=== PATIENT | male | born 1965 | race Caucasian/White ===

== ENCOUNTER 2016-09-28 10:37 | Emergency (ER) | payer OTHER ==
[2016-09-28 12:10] LABS: BASO % 0.3 % (0.2-1.2); EOS # 0.1 10_X3_uL (0.0-0.5); EOS % 1.6 % (0.8-7.0); GRAN # 3.8 10_X3_uL (1.8-5.4); GRAN % 55.4 % (34.0-67.9); HEMATOCRIT 47.3 % (40-51); HEMOGLOBIN 16.5 g/dL (13.7-17.5); LYMPH # 2.3 10_X3_uL (1.3-3.6); MEAN CORPUSCULAR HEMOGLOBIN 30.2 pg (27.0-33.0); MEAN CORPUSCULAR HGB CONC 34.9 g/dL (32.0-36.0); MEAN CORPUSCULAR VOLUME 86.5 fL (79-92); MEAN PLATELET VOLUME 10.5 fl (7.5-11.5); MONO # 0.7 10_X3_uL (0.3-0.8); MONO % 9.7 % (5.3-12.2); PLATELET COUNT 225 x10_3/uL (163-337); RED BLOOD COUNT 5.47 x10_6/uL (4.6-6.1); RED CELL DISTRIBUTION WIDTH 14.4 % (11.6-14.4); WHITE BLOOD COUNT 6.9 x10_3/uL (4.2-9.1)
[2016-09-28 12:20] LABS: URINE BILIRUBIN NEGATIVE (NEGATIVE); URINE BLOOD NEGATIVE (NEGATIVE); URINE GLUCOSE (UA) NORMAL (NORMAL); URINE KETONE NEGATIVE (NEGATIVE); URINE LEUKOCYTE ESTERASE TRACE (NEGATIVE); URINE NITRATE NEGATIVE (NEGATIVE); URINE PROTEIN NEGATIVE (NEGATIVE)
[2016-09-28 12:21] LABS: BLOOD UREA NITROGEN 15 mg/dL (7-18); CARBON DIOXIDE 23 mmol/L (21-32); CREATININE 0.9 mg/dL (0.6-1.3); GLUCOSE,RANDOM 100 mg/dL (70-99); POTASSIUM 4.3 mmol/L (3.5-5.1); SODIUM 137 mmol/L (136-145)
[2016-09-28 12:51] LABS: URINE RBC 0-5 /[HPF] (0-2); URINE WBC 0-5 /[HPF] (0-3)
== END 2016-09-28 15:30 | disposition home or self-care (01) ==
LOC: ER 10:37
PROVIDERS: Emergency Medicine
DX: M99.43 Connective tissue stenosis of neural canal of lumbar region (principal); M54.5 Low back pain; X50.0XXA Overexertion from strenuous movement or load, initial encounter; Y92.019 Unspecified place in single-family (private) house as the place of occurrence of the external cause; I25.2 Old myocardial infarction; Z87.442 Personal history of urinary calculi; Z95.5 Presence of coronary angioplasty implant and graft; F32.9 Major depressive disorder, single episode, unspecified; Z79.899 Other long term (current) drug therapy
CPT/HCPCS: 36415; 72131; 80048; 81001; 85025; 96374; 96375; 96376; 99070; 99283-25

== ENCOUNTER 2016-10-02 11:12 | Emergency (ER) | payer OTHER ==
[2016-10-02 12:00] LABS: BASO % 0.4 % (0.2-1.2); EOS # 0.1 10_X3_uL (0.0-0.5); EOS % 1.7 % (0.8-7.0); GRAN # 2.6 10_X3_uL (1.8-5.4); GRAN % 53.7 % (34.0-67.9); HEMATOCRIT 45.3 % (40-51); HEMOGLOBIN 15.6 g/dL (13.7-17.5); LYMPH # 1.5 10_X3_uL (1.3-3.6); LYMPH % 31.9 % (21.8-53.1); MEAN CORPUSCULAR HGB CONC 34.4 g/dL (32.0-36.0); MEAN CORPUSCULAR VOLUME 87.1 fL (79-92); MEAN PLATELET VOLUME 10.3 fl (7.5-11.5); MONO # 0.6 10_X3_uL (0.3-0.8); MONO % 12.3 % (5.3-12.2); PLATELET COUNT 203 x10_3/uL (163-337); RED CELL DISTRIBUTION WIDTH 14.5 % (11.6-14.4); WHITE BLOOD COUNT 4.8 x10_3/uL (4.2-9.1)
[2016-10-02 13:55] LABS: URINE BILIRUBIN NEGATIVE (NEGATIVE); URINE BLOOD TRACE (NEGATIVE); URINE GLUCOSE (UA) NORMAL (NORMAL); URINE KETONE NEGATIVE (NEGATIVE); URINE LEUKOCYTE ESTERASE NEGATIVE (NEGATIVE); URINE NITRATE NEGATIVE (NEGATIVE); URINE PROTEIN NEGATIVE (NEGATIVE); UROBILINOGEN NORMAL mg/dL (<1.0)
[2016-10-02 14:10] LABS: URINE RBC 0-5 /[HPF] (0-2)
== END 2016-10-02 17:05 | disposition left against medical advice (07) ==
LOC: ER 11:12
PROVIDERS: General Practice
DX: N20.0 Calculus of kidney (principal); K80.70 Calculus of gallbladder and bile duct without cholecystitis without obstruction; M54.10 Radiculopathy, site unspecified; M54.5 Low back pain; I25.10 Atherosclerotic heart disease of native coronary artery without angina pectoris; F17.210 Nicotine dependence, cigarettes, uncomplicated
CPT/HCPCS: 36415; 72128; 72131; 81001; 85025; 96372; 99283-25; J1170